=== PATIENT | female | born 1945 | race Caucasian/White ===

== ENCOUNTER 2020-05-25 09:39 | Emergency (ER) | payer MEDICARE, OTHER ==
[~2020-05-25] VITALS: Ht 157.5 cm; Wt 63.7 kg
[2020-05-25 10:55] VITALS: BP 126/69
--- NOTE | 2020-05-25 11:08 | PHYS DOC ---
Adult General Chief Complaint Chief Complaint: LACERATION/AVULSION HPI HPI Patient is a 74-year-old female who presents with right lower extremity abnormality. Patient reports getting up in middle of the night to pee approximately 0230 hours and was frightened in her bathroom when she found a raccoon in her bathtub. Patient subsequently tried to force the animal from her bathroom outside and in the process, ran into a wooden stair on the lateral aspect of her right [place]. Patient is not on any blood thinners but reports gradual increase in swelling and pain. Her tetanus is out of date. She denies any changes in motor or sensory function, no other neurologic deficits noted Review of Systems Review of Systems Fourteen body systems of review of systems have been reviewed. See HPI for pertinent positives and negative responses, other kim all other systems are negative, non-pertinent or non-contributory Allergies Allergies Allergies Coded Allergies Type Severity Reaction Last Updated Verified No Known Drug Allergies 05/25/20 No Physical Exam Physical Exam Constitutional: Well developed, well nourished, no acute distress, non-toxic appearance. HENT: Normocephalic, atraumatic, bilateral external ears normal, oropharynx moist, no oral exudates, nose normal. Eyes: PERRLA, EOMI, conjunctiva normal, no discharge. Neck: Normal range of motion, no tenderness, supple, no stridor. Cardiovascular: Heart rate regular, sinus rhythm, no murmurs rubs or gallops Lungs & Thorax: Bilateral breath sounds clear to auscultation Abdomen: Bowel sounds normal, soft, no tenderness, no masses, no pulsatile masses. Nonsurgical abdomen, no peritoneal signs Skin: Warm, dry, no erythema, no rash. Back: No tenderness, no CVA tenderness. Extremities: No cyanosis, no clubbing, ROM intact. Significant contusion measuring approximately 10 x 6 x 3 cm in size present on lateral aspect of patient's right lower extremity ([place]). No palpable abnormalities, no fluctuance, no crepitus, range of motion of joints above and below area in question fully intact with good pulses and capillary refill. This was observed throughout ER visit and had not progressed in size, low concern for potential compartment syndrome Neurologic: Alert and oriented X 3, grossly normal motor & sensory function, no focal deficits noted. Psychologic: Affect normal, judgement normal, mood normal. Current Patient Data Vital Signs Vital Signs Date Time Temp Pulse Resp B/P (MAP) Pulse Ox O2 Delivery O2 Flow Rate FiO2 05/25/20 10:55 98.2 78 20 126/69 (88) 98 Room Air EKG EKG [] Radiology/Procedures Radiology/Procedures PROCEDURE: KNEE RIGHT 2V PROCEDURE: TIBIA FIBULA RIGHT, KNEE RIGHT 2V STUDY DATE: 05/25/2020 CLINICAL INDICATION / HISTORY: Reason: fall to rle with hematoma / Spl. Instructions: / History: . TECHNIQUE: AP and lateral views of the right tibia and fibula. COMPARISON: None FINDINGS: AP and lateral views of the right tibia and fibula show no acute fracture, dislocation or bone destruction. The soft tissues are notable for diffuse soft tissue swelling on the anterior proximal aspect of the right leg. IMPRESSION: Soft tissue contusion to the anterior right leg without associated fracture or traumatic malalignment. PROCEDURE: TIBIA FIBULA RIGHT, KNEE RIGHT 2V STUDY DATE: 05/25/2020 CLINICAL INDICATION / HISTORY: Reason: fall to rle with hematoma / Spl. Instructions: / History: . TECHNIQUE: AP, lateral, and tunnel views of the right knee. COMPARISON: Same day tibia and fibula x-rays. FINDINGS: The osseous structures are intact. The articular surfaces are smooth. The joint space is maintained. No intra-articular loose bodies. The alignment is within normal limits. Soft tissues show swelling in the proximal aspect of the right leg below the knee, better demonstrated on same-day tibia and fibula x-rays. No obvious joint effusion. No radio-opaque foreign bodies are identified. IMPRESSION: No fracture or dislocation is identified. Electronically signed by: Shad Maria MD (05/25/2020 11:41 AM) [id number] Heart Score Risk Factors: Risk Factors: DM, Current or recent (<one month) smoker, HTN, HLP, family history of CAD, obesity. Risk Scores: Risk Factors: DM, Current or recent (<one month) smoker, HTN, HLP, family history of CAD, obesity. Course & Med Decision Making Course & Med Decision Making Pertinent Labs and Imaging studies reviewed. (See chart for details) Discussed most likely diagnosis of soft tissue contusion to right lower extremity. I did disclose this might be an acute presentation more concerning pathology such as compartment syndrome and so, I stressed the importance of close follow-up in outpatient setting I discussed role of supportive care utilizing rice protocol. Patient has good access to outpatient PCP, reports she will be able to be seen within upcoming 48 hours which I feel is appropriate. I discussed this case with PCP who also confirmed she will be seen within 48 hours Nonetheless, I discussed strict return precautions with patient with good understanding, all questions and concerns addressed prior to ER departure in stable condition [place] Disclaimer Dragon Disclaimer This electronic medical record was generated, in whole or in part, using a voice recognition dictation system. Departure Departure: Impression: Primary Impression: Contusion of lower leg, right Disposition: 01 DC HOME SELF CARE/HOMELESS Condition: STABLE Referrals: SAMINA ESPINO MD (PCP) Patient Instructions: Contusion Additional Instructions: As discussed prior to ER departure, please call your primary care physician first thing after ER departure to call and schedule outpatient follow-up in upcoming 72 hours for repeat examination Please continue to practice supportive care techniques at home such as gentle compression, elevation, and ice with Tylenol use as needed for pain control If any concerning signs or symptoms present prior to outpatient follow-up please do not hesitate to come back for repeat examination It was a pleasure to take care of you and I wish you a speedy recovery NANCY PARADA DO May 25, 2020 11:08
[2020-05-25] MEDS ORDERED: ACETAMINOPHEN 325 MG TABLET PO ONE (11:15)
[2020-05-25] MEDS ORDERED: DIPH,PERTUSS(ACELL),TET VAC/PF 0.5 ML SYRINGE. VAX IM ONE (11:15)
--- NOTE | 2020-05-25 11:44 | RAD ---
PROCEDURE: TIBIA FIBULA RIGHT, KNEE RIGHT 2V STUDY DATE: 05/25/2020 CLINICAL INDICATION / HISTORY: Reason: fall to rle with hematoma / Spl. Instructions: / History: . TECHNIQUE: AP and lateral views of the right tibia and fibula. COMPARISON: None FINDINGS: AP and lateral views of the right tibia and fibula show no acute fracture, dislocation or bone destruction. The soft tissues are notable for diffuse soft tissue swelling on the anterior proximal aspect of the right leg. IMPRESSION: Soft tissue contusion to the anterior right leg without associated fracture or traumatic malalignment. PROCEDURE: TIBIA FIBULA RIGHT, KNEE RIGHT 2V STUDY DATE: 05/25/2020 CLINICAL INDICATION / HISTORY: Reason: fall to rle with hematoma / Spl. Instructions: / History: . TECHNIQUE: AP, lateral, and tunnel views of the right knee. COMPARISON: Same day tibia and fibula x-rays. FINDINGS: The osseous structures are intact. The articular surfaces are smooth. The joint space is maintained. No intra-articular loose bodies. The alignment is within normal limits. Soft tissues show swelling in the proximal aspect of the right leg below the knee, better demonstrated on same-day tibia and fibula x-rays. No obvious joint effusion. No radio-opaque foreign bodies are identified. IMPRESSION: No fracture or dislocation is identified. Electronically signed by: Shad Maria MD (05/25/2020 11:41 AM) [id number]
== END 2020-05-25 12:20 | disposition home or self-care (01) ==
LOC: ER 09:39
DX: S80.11XA Contusion of right lower leg, initial encounter (principal); W22.8XXA Striking against or struck by other objects, initial encounter; Y93.89 Activity, other specified; Y92.89 Other specified places as the place of occurrence of the external cause; Y99.8 Other external cause status
CPT/HCPCS: 73560; 73590; 90471; 90715; 99284